=== PATIENT | male | born 1980 | race Hispanic/Latino ===

== ENCOUNTER 2017-03-12 13:32 | Emergency (ER) | payer SELFPAY ==
[2017-03-12 14:21] VITALS: BMI 25.1
[2017-03-12 14:24] VITALS: RESP 18; TEMP 98.1; O2SAT 99
[2017-03-12] MEDS ORDERED: Sodium Chloride 0.9% 2,000 ML IV ONE (16:03)
[2017-03-12] MEDS ORDERED: Sodium Chloride 0.9% 2,000 ML ONE (16:18)
--- NOTE | 2017-03-12 16:18 | C.PDOC ---
History Of Present Illness Patient is a 36 y/o M presenting with episode of near syncope. He reports that he was smoking marijuana today when he had feeling of tingling in his legs. He reports that he ran inside his house and then sat down before he had an episode of near syncope. Denies associated chest pain or palpitations. He reports that he then ran outside to get "some air" and that made him feel better. He reports that he thinks he is dehydrated from smoking, doing cocaine and drinking a lot this weekend. Time Seen by Provider: 03/12/17 15:34 Chief Complaint (Nursing): Syncope Past Medical History Vital Signs: Last Vital Signs Temp 98.1 F 03/12/17 14:21 Pulse 77 03/12/17 14:21 Resp 18 03/12/17 14:21 BP 141/90 03/12/17 14:21 Pulse Ox 99 03/12/17 18:57 - Medical History PMH: No Chronic Diseases Family History: States: Unknown Family Hx - Social History Hx Alcohol Use: Yes Hx Substance Use: Yes (cocaine) - Immunization History Hx Tetanus Toxoid Vaccination: No Hx Influenza Vaccination: No Hx Pneumococcal Vaccination: No Review Of Systems Constitutional: Negative for: Fever, Chills ENT: Negative for: Ear Pain Cardiovascular: Positive for: Light Headedness. Negative for: Chest Pain, Palpitations, Orthopnea, Paroxysmal Noc. Dyspnea, Edema Respiratory: Negative for: Cough, Shortness of Breath, SOB with Excertion, Wheezing Gastrointestinal: Negative for: Nausea, Vomiting, Abdominal Pain, Diarrhea, Constipation Genitourinary: Negative for: Dysuria Neurological: Negative for: Weakness, Numbness, Incoordination, Change in Speech , Confusion, Seizures, Altered Mental Status, Headache, Dizziness Psych: Negative for: Anxiety Physical Exam - Physical Exam Appears: Well, Non-toxic, No Acute Distress Skin: Normal Color, Warm, Dry Head: Atraumatic, Normacephalic Eye(s): bilateral: Normal Inspection, PERRL, EOMI Chest: Symmetrical Cardiovascular: Rhythm Regular Respiratory: Normal Breath Sounds, No Rales, No Rhonchi, No Wheezing Gastrointestinal/Abdominal: Soft, No Tenderness, No Mass Back: Normal Inspection Extremity: Normal ROM (x4) Neurological/Psych: Oriented x3, Normal Speech, Normal Cranial Nerves, Normal Motor, Normal Sensation Gait: Steady ED Course And Treatment - Laboratory Results Result Diagrams: 03/12/17 16:37 03/12/17 16:37 O2 Sat by Pulse Oximetry: 99 Medical Decision Making Medical Decision Making: Patient presenting with near syncope after polysubstance abuse. Also requesting HIV test because "I democrat a lot." Symptoms likely secondary to polysubstance and dehydration.Will get labs and give IVF 4:21PM EKG shows NSR at 61bpm with sinus arrhythmia, normal intervals and no St changes 5:57PM CBC and CMP grossly normal. Cxray negative 7:00PM Patient is neurologically intact. He feels better after IVF and is ambulating around the ED. He is tolerating po. He has no cardiac risk factors and can follow-up as outpatient for further evaluation. HIV test negative. Disposition - Disposition Disposition: HOME/ ROUTINE Disposition Time: 18:54 Condition: GOOD Additional Instructions: Avoid using illicit drugs. Stay hydrated. Follow-up with your PMD within 2 days for further evaluation. Instructions: Polysubstance Abuse (ED), Near Syncope (ED), Lightheadedness (ED) - Clinical Impression Clinical Impression: Polysubstance abuse, Dizziness
[2017-03-12 16:49] LABS: BASO # 0.1 K/uL (0.0-0.2); BASO % 0.9 % (0.0-2.0); EOS # 0.3 K/uL (0.0-0.7); EOS % 2.3 % (0.0-4.0); HEMOGLOBIN 16.3 g/dL (12.0-18.0); LYMPH # 2.1 K/uL (1.0-4.3); LYMPH % 17.7 % (20.0-40.0); MEAN CELL VOLUME 90.4 fL (80.0-94.0); MEAN CORPUSCULAR HEMOGLOBIN 30.1 pg (27.0-31.0); MEAN CORPUSCULAR HGB CONC 33.3 g/dL (33.0-37.0); MEAN PLATELET VOLUME 8.4 fL (7.2-11.7); MONO # 0.7 K/uL (0.0-0.8); MONO % 6.2 % (0.0-10.0); NEUT # 8.8 K/uL (1.8-7.0); NEUT % 72.9 % (50.0-75.0); RBC 5.41 Mil/uL (4.40-5.90); WHITE BLOOD COUNT 12.1 K/uL (4.8-10.8)
[2017-03-12 17:01] LABS: ALBUMIN 4.4 g/dL (3.5-5.0)
[2017-03-12 17:04] LABS: AST/SGOT 28 U/L (17-59); GFR AFRICAN-AMERICAN > 60; GFR NON-AFRICAN AMERICAN > 60
[2017-03-12 17:05] LABS: ALB/GLOB RATIO 1.2 (1.0-2.1); ALT/SGPT 31 U/L (21-72); BLOOD UREA NITROGEN 22 mg/dL (9-20); CALCIUM 9.5 mg/dl (8.6-10.4)
[2017-03-12 19:18] VITALS: BP 128/87; PULSE 75
--- NOTE | 2017-03-13 08:36 | RAD ---
HISTORY: syncope COMPARISON: No prior. FINDINGS: LUNGS: No active pulmonary disease. PLEURA: No significant pleural effusion identified, no pneumothorax apparent. CARDIOVASCULAR: Normal. OSSEOUS STRUCTURES: No significant abnormalities. VISUALIZED UPPER ABDOMEN: Normal. OTHER FINDINGS: None. IMPRESSION: No active disease.
--- NOTE | 2017-03-14 13:59 | CARD ---
APPROVED REPORT EKG Measurement Heart [id number] <Conclusion> Normal sinus rhythm with sinus arrhythmia Normal ECG
== END 2017-03-12 19:18 | disposition home or self-care (01) ==
LOC: C.ER 13:32
DX: F19.10 Other psychoactive substance abuse, uncomplicated (principal); R42 Dizziness and giddiness
CPT/HCPCS: 71010; 80053; 85025; 86703; 93005; 96360; 96361; 99285; J7040